=== PATIENT | male | born 1995 | race Hispanic/Latino ===

== ENCOUNTER 2019-11-20 22:25 | Emergency (ER) | payer SELFPAY ==
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
[2019-11-20 22:22] VITALS: BP 134/89; PULSE 110; RESP 30; TEMP 36.8; O2SAT 94
[2019-11-20 22:30] VITALS: BP 127/72; PULSE 111; RESP 30; O2SAT 92
--- NOTE | 2019-11-20 22:43 | ECG_ITS ---
Measurements Intervals [place] Rate: 114 P: 65 NV: 179 QRS: 68 QRSD: 92 T: 34 QT: 327 QTc: 450 Interpretive Statements SINUS TACHYCARDIA DELAYED PRECORDIAL R/S TRANSITION MINIMAL Q WAVES- INFERIOR LEADS ABNORMAL ECG Electronically Signed On 11-21-2019 9:23:02 CDT by Sanchez Greenfield D.O.
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
[2019-11-20 23:21] LABS: Estimated CRCL calculation 173 ml/min; Estimated Glomerular Filt Rate > 60
[2019-11-20 23:30] VITALS: BP 131/72; PULSE 102; RESP 22; O2SAT 93
[2019-11-20 23:37] LABS: Glucose Point of Care 140 (65-105)
[2019-11-20] MEDS: LACTATED RINGERS 1,000 ML 999 ML IV CONT (23:42)
[2019-11-20 23:44] LABS: Basophils Absolute Auto 0.1 K/mm3 (0.0-0.1); Basophils Percent Auto 0.4 % (0.2-1.2); Eosinophils Absolute Auto 0.2 K/mm3 (0-0.3); Eosinophils Percent Auto 1.2 % (0-4.4); Hematocrit 49.5 % (42.0-52.0); Hemoglobin 17.4 g/dL (14.0-18.0); Immature Granulocyte Absolute 0.06 K/mm3 (0.00-0.031); Immature Granulocyte Percent A 0.5 % (0-0.5); Lymphocytes Absolute Auto 1.87 K/mm3 (0.9-3.2); Lymphocytes Percent Auto 14.9 % (18.3-44.2); Mean Corpuscular HGB Conc 35.2 g/dl (32-36); Mean Corpuscular Hemoglobin 31.2 pg (26-34); Mean Corpuscular Volume 88.7 fl (80-100); Mean Platelet Volume 10.5 fl (7.4-10.4); Monocytes Absolute Auto 0.8 K/mm3 (0.1-0.6); Monocytes Percent Auto 6.3 % (2.6-8.5); Neutrophils Absolute Auto 9.6 K/mm3 (1.3-6.7); Neutrophils Percent Auto 76.7 % (45.5-73.1); Platelet Count Result 168 k/mm3 (150-375); Red Blood Count 5.58 M/mm3 (4.6-6.20); Red Cell Distribution Width 11.7 % (11.5-14.5); White Blood Count 12.6 K/mm3 (4.5-10.0)
[2019-11-20 23:55] LABS: Alanine Aminotransferase 38 U/L (4-50); Albumin Level 4.5 g/dL (3.5-5.1); Alkaline Phosphatase 92 U/L (38-126); Anion Gap 13 mmol/L (8-16); Aspartate Amino Transferase 32 U/L (17-59); Bilirubin,Total 0.6 mg/dL (0.2-1.3); Blood Urea Nitrogen 12 mg/dL (9-20); Calcium 9.4 mg/dL (8.4-10.2); Carbon Dioxide 22 mmol/L (22-30); Chloride 102 mmol/L (98-107); Estimated CRCL calculation 226 ml/min; Estimated Glomerular Filt Rate > 60; Glucose 146 mg/dL (75-110); Potassium 4.1 mmol/L (3.4-5.0); Sodium 137 mmol/L (137-145)
[2019-11-20 23:59] LABS: Add Urine Microscopic? YES; Appearance Urine Clear (Clear); Bilirubin Urine Negative (Negative); Blood Urine Negative (Negative); Color Urine Yellow (Yellow); Glucose Urine UA Negative (Negative); Ketones Urine Negative (Negative); Leukocyte Esterase Ur Negative LEU/UL (Negative); Mucus Urine Rare /lpf; Nitrate Urine Negative (Negative); Protein Urine 1+ mg/dL (Negative); RBC Urine 0-2 /hpf (0-2); Urobilinogen Urine Negative mg/dL (<2.0); WBC Urine 0-3 /hpf
[2019-11-21] VITALS (10 sets, daily range): BP systolic 107–132; BP diastolic 58–80; PULSE 77–115; RESP 12–26; O2SAT 90–98
--- NOTE | 2019-11-21 00:25 | PC.NURSE ---
Pt actively seizing. VORB ERP Padilla 2mg Ativan was administred IV. Pt. sleeping at this time.
[2019-11-21 00:34] LABS: Valproic Acid < 10.0 ug/mL (50-120)
[2019-11-21] MEDS: levETIRAcetam 1000MG/NACL100ML 1,000 MG/100 ML BAG 400 MG IVPB (02:56)
[2019-11-21 03:24] LABS: Barbiturate Screen Urine Negative (Negative); Benzodiazepines Screen Urine Negative (Negative)
[2019-11-21 03:28] LABS: Amphetamine Screen Urine Negative (Negative); Cannabinoid Screen Urine Negative (Negative); Cocaine Screen Urine Negative (Negative); Methadone Screen Urine Negative (Negative); Opiate Screen Urine Negative (Negative)
--- NOTE | 2019-11-21 03:35 | PC.NURSE ---
Pt. accepted at [facility] 415
[2019-11-21 05:55] LABS: Phencyclidine Screen Urine Negative (Negative)
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
--- NOTE | 2019-11-21 08:35 | PC.NURSE ---
culp called with new eta of [id number]
--- NOTE | 2019-11-21 09:29 | PC.NURSE ---
new eta update 1031
--- NOTE | 2019-11-21 09:31 | PC.NURSE ---
patient left [facility]
== END 2019-11-21 09:49 | disposition left against medical advice (07) ==
PROVIDERS: Emergency Provider General Practice
DX: G40.909 Epilepsy, unspecified, not intractable, without status epilepticus (principal); J45.909 Unspecified asthma, uncomplicated; R00.0 Tachycardia, unspecified; R94.31 Abnormal electrocardiogram [ECG] [EKG]; V47.5XXA Car driver injured in collision with fixed or stationary object in traffic accident, initial encounter
CPT/HCPCS: 36415; 70450; 71260; 72125; 74177; 80053; 80164; 80307; 81001; 85025; 93005; 96361; 96374; 96375; 99284; J1953; J2060; J7120; L0140; Q9967